=== PATIENT | female | born 1980 | race Two or more races ===

== ENCOUNTER 2025-03-04 04:38 | Emergency (ER) | payer BC ==
[2025-03-04 05:12] LABS: Pregnancy Test - Urine (BHCG) Negative (Negative); Pregu Control Bar Appear? YES (CONTROL BAR)
[2025-03-04 05:13] LABS: Pregu Control Background? CLEAR/WHITE (CLR/WHITE)
[2025-03-04 05:14] LABS: Glucose, Urine (Dipstick) Negative (Negative); Leukocyte Negative (Negative); Protein, Urine (Dipstick) Negative (Neg-Trace); Specific Gravity, Urine 1.025 (1.005-1.030)
[2025-03-04 05:15] LABS: Bacteria/HPF 1+ HPF (None Seen); CAUTI Indications for Culture Pelvic or flank pain; RBC/HPF 0-3 HPF (0-3); WBC/HPF None Seen HPF (0-3)
[2025-03-04 05:17] LABS: Urine Culture Reflex No No
== END 2025-03-04 06:08 | disposition home or self-care (01) ==
LOC: CSHERS 04:38
DX: K59.00 Constipation, unspecified (principal); N83.202 Unspecified ovarian cyst, left side; D25.9 Leiomyoma of uterus, unspecified
CPT/HCPCS: 74176; 81001; 81025; Q0162